=== PATIENT | female | born 1975 | race Caucasian/White ===

== ENCOUNTER 2024-03-30 12:08 | Emergency (ER) | payer BC, SELFPAY ==
[2024-03-30] VITALS (7 sets, daily range): BP systolic 104–134; BP diastolic 67–80; PULSE 70–87; RESP 13–18; TEMP 36.5; O2SAT 94–99; BMI 33.0
--- NOTE | 2024-03-30 12:07 | ECG_ITS ---
APPROVED REPORT Exam: Resting ECG HR:76 bpm ECG Measurements Heart Rate 76 AXES TN 168 P 63 QRSd 113 QRS 60 QT 369 T 73 QTc 399 Conclusion SINUS RHYTHM LOW QRS VOLTAGE IN PRECORDIAL LEADS [QRS DEFLECTION < 1.0 mV IN CHEST LEADS] MODERATE INTRAVENTRICULAR CONDUCTION DELAY [110+ ms QRS DURATION] BORDERLINE ECG UNCONFIRMED REPORT Electronically signed by : BRANDIN COHEN, 03/30/2024 15:43:04
--- NOTE | 2024-03-30 12:12 | XR_ITS ---
FINAL REPORT CLINICAL HISTORY: Nonspecific chest pain COMPARISON: None FINDINGS: Two views of the chest were obtained. The heart size and pulmonary vascularity are within normal limits. The mediastinum is normal. No acute pulmonary abnormality is identified. There is no pneumothorax. The bony thorax is intact. IMPRESSION: No active cardiopulmonary disease. Reviewed, Interpreted and Dictated by Marcus Sutton III, MD Transcribed by Juliet Perry Authenticated and [facility]
--- NOTE | 2024-03-30 12:13 | PC.NURSE ---
Dr. Brumfield at [facility] for pt eval
--- NOTE | 2024-03-30 12:15 | HMH.EDGENADL ---
Discharge Plan Disposition Patient Disposition: Home, Self-Care Condition: Good Chief Complaint: Chest Pain Referrals Follow up/Referrals: Genevieve Nolan [Primary Care Provider] - See instructions Activity Restrictions/Add. Instructions Additional Instructions/Restrictions: You have been evaluated in the ED for your complaints. You may follow-up with your PCP in the next 3 to 5 days. Please return to ED for any new or worsening symptoms. Clinical Impressions Clinical Impression: Chest pain Print Language Print Language: Bahraini Discharge ED Provider: Garret Brumfield General Adult HPI General Chief complaint: Chest Pain Stated complaint: Chest Pain Time Seen by Provider: 03/30/24 12:14 History of Present Illness HPI narrative: 48-year-old female with no pertinent past medical history presents today for evaluation concerning central chest discomfort radiating to her back onset yesterday. She characterizes the sensation as a tightness and pressure. She also states that at times she has felt as if she cannot take a deep breath. Also reports nausea that began on Thursday and 1 episode of diarrhea last night. Denies any fevers, chills, abdominal pain, dysuria, hematuria or any other associated symptoms at this time. Related Data Allergies Allergy/AdvReac Type Severity Reaction Status Date / Time No Known Allergies Allergy Unverified 07/14/17 15:25 [facility] Disclaimer: The information contained in this section may have been updated after the patient was seen, as this information can be updated by other users. Social History Smoking Status: Never smoker alcohol intake: never current occupational status: employed Travel in the last 8 weeks: None ROS Obtained: Yes All systems reviewed & no additional complaints except as documented Physical Exam General General appearance: alert and in no apparent distress Head Head exam: atraumatic and normocephalic Eye Eye exam: Present normal appearance, PERRL and EOMI ENT ENT exam: Present normal oropharynx and mucous membranes moist Neck Neck exam: Present full ROM; Absent meningismus Respiratory Respiratory exam: Absent respiratory distress, wheezes, stridor or accessory muscle use Cardiovascular Cardiovascular exam: Present normal rhythm Abdominal Exam Abdominal exam: Present soft; Absent distention, tenderness, guarding, rebound or rigidity Neurological Exam Neurological exam: Present alert, oriented X3 and CN II-XII intact; Absent motor sensory deficit Psychiatric Psychiatric exam: Present normal affect and normal mood Skin Skin exam: Present warm and dry Medical Decision Making Medical Records Medical records reviewed: Yes I reviewed the patient's medical records. Justo Inquiry Pt receiving controlled substance: No Justo was queried for this patient: No Vital Signs: 03/30/24 12:09 03/30/24 12:31 03/30/24 13:00 Temperature 97.7 F Temperature Source Oral Pulse Rate 81 70 Pulse Rate [Left Radial] 87 Respiratory Rate 16 14 13 Blood Pressure 120/74 110/71 Blood Pressure [Right Arm] 134/80 Blood Pressure Mean [Right Arm] 98 02 Sat by Pulse Oximetry 99 96 94 L Oxygen Delivery Method Room Air 03/30/24 13:30 03/30/24 13:47 03/30/24 14:00 Temperature Temperature Source Pulse Rate 72 70 70 Pulse Rate [Left Radial] Respiratory Rate 14 13 17 Blood Pressure 110/76 104/68 L 109/67 L Blood Pressure [Right Arm] Blood Pressure Mean [Right Arm] 02 Sat by Pulse Oximetry 95 96 96 Oxygen Delivery Method Lab Data Lab Results 03/30/24 12:10: WBC 5.0, RBC 4.50, Hgb 14.2, Hct 43.4, MCV 96.3, MCH 31.6 H, MCHC 32.8, RDW 12.9, Plt Count 218, MPV 8.6, Neut % (Auto) 56.0, Lymph % (Auto) 35.0, Elmore % (Auto) 5.9, Eos % (Auto) 1.8, Baso % (Auto) 1.3, Neut # (Auto) 2.8, Lymph # (Auto) 1.8, Elmore # (Auto) 0.3, Eos # (Auto) 0.1, Baso # (Auto) 0.1, D-Dimer 0.43, Sodium 139, Potassium 3.6, Chloride 105, Carbon Dioxide 26, Anion Gap 11.6, BUN 21 H, Creatinine 0.60, Estimated Creat Clear 166, Estimated GFR 106, Est GFR ( Amer) 129, Glucose 160 H, Calcium 9.0, Total Bilirubin 0.5, AST 34, ALT 39, Alkaline Phosphatase 70, Troponin I < 0.01, Total Protein 7.3, Albumin 4.2, Globulin 3.1, Albumin/Globulin Ratio 1.4 03/30/24 13:58: Troponin I < 0.01 03/30/24 12:10 03/30/24 12:10 Orders (Tests/Meds): ED MEDICATIONS Generic Name Dose Route Start Last Admin Trade Name Sherry PRN Reason Stop Dose Admin Sodium Chloride 10 ml 03/30/24 12:26 Sodium Chloride 0.9% 10ml Flush Syringe IV 04/29/24 12:25 NEEDED PRN Maintain IV Site ORDERS Category Date Time Status CXR 2 view (NOT portable) [XR chest 2V] Stat Exams 03/30/24 12:12 Completed Complete Blood Count Auto Diff Stat Lab 03/30/24 12:10 Completed Comprehensive Metabolic Panel Stat Lab 03/30/24 12:10 Completed D-Dimer Stat Lab 03/30/24 12:10 Completed Troponin I Q3H Lab 03/30/24 13:58 Completed Troponin I Q3H Lab 03/30/24 18:15 Ordered Troponin I Stat Lab 03/30/24 12:10 Completed HEART Score History (anamnesis): Slightly suspicious ECG: Normal Age: 45-65 years Risk factors: No known risk factors Troponin: </= normal limit HEART Score: 1 Medical Decision Narrative: 48-year-old female with no pertinent past medical history presents today for evaluation concerning central chest discomfort radiating to her back onset yesterday. She characterizes the sensation as a tightness and pressure. She also states that at times she has felt as if she cannot take a deep breath. Also reports nausea that began on Thursday and 1 episode of diarrhea last night. On assessment the patient was medically stable and in no acute distress. Afebrile. Chest was clear to station bilaterally. Her abdomen was soft nondistended and nontender to palpation. Her blood pressure notably was 134/80. Denying any pain at this time. Office was advised unremarkably differential diagnosis include but limited to STEMI, NSTEMI, PE, pleural effusion, pneumonia, musculoskeletal pain, among others EKG was personally interpreted by me is remarkable for normal sinus rhythm with a rate of 76 bpm. No ischemic changes. QTc is not prolonged at 399 QRS of 113. Lab work today shows no elevation in WBC at 5. D-dimer negative at 0.43. Initial and second troponin unremarkable less than 0.01. Chest x-ray did not show any acute cardiopulmonary disease processes. On reassessment the patient remains hemodynamically stable in no acute distress. Continues to be pain-free. Discussed with patient ED work-up and results and current plan to discharge. Provided with return to ED precautions and instructions concerning PCP follow-up. Patient verbalized understanding and agreement with plan. Subsequently discharged hemodynamically stable and in no acute distress. Critical Care Critical Care Time Critical Care Time: No
[2024-03-30 12:38] LABS: Alanine Aminotransferase 39 U/L (12-78); Albumin Level 4.2 g/dl (3.5-5.0); Albumin/Globulin Ratio 1.4 (1.1-1.8); Alkaline Phosphatase 70 U/L (38-126); Anion Gap 11.6 mEq/L (5-15); Aspartate Amino Transferase 34 U/L (14-36); Bilirubin,Total 0.5 mg/dl (0.2-1.3); Blood Urea Nitrogen 21 mg/dl (7-17); Carbon Dioxide 26 mmol/L (22.0-30.0); Chloride 105 mmol/L (98-107); Creatinine Clearance Estimated 166 mL/min (50-200); Estimated Glomerular Filt Rate 106 ml/min (>60); GFR (African American) 129 ML/MIN (>60); Globulin 3.1 g/dL (1.3-3.2); Glucose 160 mg/dl (74-100); Potassium 3.6 mmoL/L (3.5-5.1); Sodium 139 mmol/L (136-145); Total Protein,Serum 7.3 g/dl (6.3-8.2)
[2024-03-30 12:42] LABS: D-Dimer 0.43 ug/mL (0.0-0.5)
[2024-03-30 12:50] LABS: Troponin I < 0.01 ng/ml (0.00-0.034)
[2024-03-30 13:35] LABS: Basophils # 0.1 K/mm3 (0-0.2); Basophils % 1.3 % (0.1-2.0); Eosinophils # 0.1 K/mm3 (0.0-0.4); Eosinophils % 1.8 % (0.1-12.0); Hematocrit 43.4 % (37.0-47.0); Hemoglobin 14.2 g/dL (12.2-16.2); Lymphocytes # 1.8 K/mm3 (0.7-4.5); Mean Corpuscular HGB Conc 32.8 g/dL (31.8-35.4); Mean Corpuscular Hemoglobin 31.6 pg (27.0-31.2); Mean Corpuscular Volume 96.3 fl (81-99); Mean Platelet Volume 8.6 fl (7.4-10.4); Monocytes # 0.3 K/mm3 (0.1-1.0); Monocytes % 5.9 % (1.7-9.3); Neutrophils # 2.8 K/mm3 (1.8-7.8); Platelet Count 218 K/mm3 (142-424); Red Cell Distribution Width 12.9 % (11.5-17.5)
[2024-03-30 14:29] LABS: Troponin I < 0.01 ng/ml (0.00-0.034)
== END 2024-03-30 14:58 | disposition home or self-care (01) ==
PROVIDERS: Emergency Provider Emergency Medicine; PCP Family Medicine
DX: R07.9 Chest pain, unspecified (principal); M54.9 Dorsalgia, unspecified; R11.0 Nausea
CPT/HCPCS: 71046; 80053; 84484; 85025; 85378; 93005; 99285